=== PATIENT | female | born 1955 | race Caucasian/White ===

== ENCOUNTER → 2020-08-19 11:48 | Outpatient (CLI) | payer MEDICARE, OTHER, SELFPAY ==
--- NOTE | ~2020-08-19 | MM_ITS ---
EXAMINATION: MM screening [place] [facility] w kim HISTORY: Screening TECHNIQUE: Craniocaudal and mediolateral oblique 3-D tomosynthesis images were obtained and synthetic 2-D images were generated. CAD analysis was submitted and interpreted. COMPARISON: No prior mammogram is available for comparison at this institution. BREAST PARENCHYMAL COMPOSITION: There are scattered areas of fibroglandular density. FINDINGS: There are bilateral asymmetry superiorly in the right breast on MLO view and laterally in t he left breast on CC view. There are scattered benign-appearing calcifications. IMPRESSION: 1. Bilateral breast asymmetries. 2. Recommend comparison to previous outside mammograms. BI-RADS CATEGORY 0 - INCOMPLETE STUDY, NEED ADDITIONAL IMAGING EVALUATION. Reviewed, dictated and finalized at location A.
== END ==
PROVIDERS: PCP Internal Medicine; Visit Provider Internal Medicine
DX: Z12.31 Encounter for screening mammogram for malignant neoplasm of breast (principal); R92.8 Other abnormal and inconclusive findings on diagnostic imaging of breast
CPT/HCPCS: 77063; 77067

== ENCOUNTER 2021-01-25 12:08 | Emergency (ER) | payer MEDICARE, OTHER, SELFPAY ==
--- NOTE | 2021-01-25 12:10 | ED.URI ---
HPI - URI/Sore Throat General Chief Complaint: Upper Respiratory Infection Stated Complaint: swollen glands/sore throat Time Seen by Provider: 01/25/21 12:11 Source: patient and RN notes reviewed Mode of arrival: ambulatory Limitations: no limitations History of Present Illness HPI Narrative: 65-year-old female presents to the [facility] with complaints of a sore throat and swollen lymph nodes for the last week. Patient reports that she has taken DayQuil and NyQuil. No other symptoms. States it was hard to swallow her pills this morning. Patient has a history of high cholesterol, depression and thyroid disorder. Denies any past surgeries. Patient reports that she is fully vaccinated against Covid and has had her flu vaccine this year. MD elicited complaint: sore throat Related Data Home Medications Medication Instructions Recorded Confirmed atorvastatin 20 mg PO DAILY 08/25/20 01/25/21 citalopram 20 mg PO DAILY 08/25/20 01/25/21 methimazole 10 mg PO DAILY 08/25/20 01/25/21 Allergies Allergy/AdvReac Type Severity Reaction Status Date / Time No Known Allergies Allergy Verified 08/25/20 12:22 Review of Systems Review of Systems: All systems reviewed & are unremarkable except as noted in HPI and below Constitutional: Constitutional: Reports no additional constitutional complaints, Denies chills and Denies fever(s) Eyes: Eyes: Reports no additional eye complaints ENT: Reports as per HPI, Denies vertigo, Denies dizziness, Denies nasal congestion and Reports sore throat Cardiovascular: Cardiovascular: Reports no additional cardiovascular complaints and Denies chest pain Respiratory: Respiratory: Reports no additional respiratory complaints, Denies cough and Denies dyspnea Gastrointestinal: Gastrointestinal: Reports no additional gastrointestinal complaints, Denies abdominal pain, Denies diarrhea, Denies nausea and Denies vomiting Genitourinary: Genitourinary: Reports no additional female genitourinary complaints Musculoskeletal: Musculoskeletal: Reports no additional musculoskeletal complaints Integumentary/Breasts: Skin/Breast: Reports system reviewed and no additional complaints, except as docu Neurologic: Reports system reviewed and no additional complaints, except as documented Psychiatric: Psychiatric: Reports no additional psychiatric complaints Hematologic/Lymphatic: Hematologic/Lymphatic: Reports as per HPI Allergic/Immunologic: Allergic/Immunologic: Reports no additional allergic/immunologic complaints PMFSH Past Medical History Medical History Depression High cholesterol Thyroid disorder Surgical History Surgical History (Updated 01/25/21 @ 19:06 by America Thompson) No significant past surgical history Social History Social History Smoking status: Never smoker Alcohol use details: occasional Substance use: never Substance use type: does not use Additional living arrangements comments: stress at home, spouse suffers from Parkinsons' disease Gender identity (if verbalized by the patient): Female Sexual Orientation (if Verbalized by the Patient): Straight or Heterosexual Spiritual care concerns: No Comments At the time of my signature, I reviewed and agree with the nursing past medical, surgical, social, and family history. There is no relevant family history pertinent to the patient complaint. Exam Const: General: no acute distress, alert and ill appearing acutely Nutritional Appearance: well nourished Orientation/consciousness: patient oriented x3 Limitations: no limitations HENMT: Head: normal to inspection Ears: hearing grossly normal bilaterally, external ears normal, TM's normal bilaterally and EAC's normal General nose exam: Normal external nose present, Normal nares present and Normal nasal mucous membranes and turbinates present Face and sinus: normal facial e
[2021-01-25 12:17] VITALS: BP 150/101; PULSE 93; RESP 16; TEMP 37; O2SAT 100
== END 2021-01-25 12:38 | disposition home or self-care (01) ==
PROVIDERS: Emergency Provider Nurse Practitioner; PCP Internal Medicine
DX: R59.1 Generalized enlarged lymph nodes (principal); J02.9 Acute pharyngitis, unspecified; E78.00 Pure hypercholesterolemia, unspecified; E07.9 Disorder of thyroid, unspecified; F32.A Depression, unspecified
CPT/HCPCS: 36416; 86308; 87081; 87147; 87880; 99203; G0463

== ENCOUNTER → 2022-04-26 12:16 | Outpatient (CLI) | payer MEDICARE, OTHER, SELFPAY ==
--- NOTE | ~2022-04-26 | MM_ITS ---
EXAMINATION: MM screening [place] [facility] w kim HISTORY: Screening mammogram TECHNIQUE: Craniocaudal and mediolateral oblique 3-D tomosynthesis images were obtained and synthetic 2-D images were generated. CAD analysis was submitted and interpreted. COMPARISON: 08/19/2020, 05/08/2015 bilateral screening mammogram examinations BREAST PARENCHYMAL COMPOSITION: There are scattered areas of fibroglandular density. FINDINGS: Grouped microcalcifications in the outer left breast; diagnostic left mammogram with magnif ication views is recommended for more definitive evaluation. Otherwise there is no evidence of suspicious mass, calcification, or architectural distortion to sugg est malignancy in either breast. There has been no other suspicious interval change. IMPRESSION: 1. . Microcalcifications, upper outer left breast 2. Diagnostic left mammogram with magnification views is recommended BI-RADS Category 0: Incomplete: Needs additional imaging evaluation. Reviewed, dictated and finalized at location A. PT COORDINATOR
== END ==
PROVIDERS: PCP Internal Medicine; Visit Provider Internal Medicine
DX: Z12.31 Encounter for screening mammogram for malignant neoplasm of breast (principal); R92.8 Other abnormal and inconclusive findings on diagnostic imaging of breast
CPT/HCPCS: 77063; 77067

== ENCOUNTER → 2022-05-24 08:11 | Outpatient (CLI) | payer MEDICARE, OTHER, SELFPAY ==
--- NOTE | ~2022-05-24 | MM_ITS ---
EXAMINATION: MM diagnostic mammo unilat LT HISTORY: Left breast calcifications on screening mammogram TECHNIQUE: Magnification views of the left breast were performed. CAD analysis was submitted and inte rpreted. COMPARISON: 04/26/2022, 08/19/2020,05/08/2015 FINDINGS: There are grouped calcifications in the middle third of the upper outer quadrant of the azael ast at the 2:00 location 8 cm from the nipple which appear to be punctate and fine pleomorphic in mor phology. IMPRESSION: 1. Indeterminate left breast calcifications. 2. Stereotactic left breast biopsy is recommended. BI-RADS category 4, suspicious findings. Reviewed, dictated and finalized at location A. STRIPER
== END ==
PROVIDERS: PCP Internal Medicine; Visit Provider Internal Medicine
DX: R92.8 Other abnormal and inconclusive findings on diagnostic imaging of breast (principal)
CPT/HCPCS: 77061; 77065; G0279